=== PATIENT | male | born 1975 | race Caucasian/White ===

== ENCOUNTER 2019-09-02 20:30 | Emergency (ER) | payer MEDICAID ==
[~2019-09-02] VITALS: Ht 167.6 cm; Wt 79.4 kg
[2019-09-02 20:32] VITALS: BP 156/88; Ht 167.6 cm; Wt 79.4 kg
== END 2019-09-02 22:16 | disposition home or self-care (01) ==
LOC: ED 20:30
DX: L20.9 Atopic dermatitis, unspecified (principal)